=== PATIENT | female | born 1980 | race African-American/Black ===

== ENCOUNTER 2017-08-03 23:03 | Emergency (ER) | payer OTHER ==
[~2017-08-03] VITALS: Ht 170.2 cm; Wt 100.0 kg
[2017-08-03] MEDS ORDERED: QUET1TAB9 PO (23:16)
[2017-08-03] MEDS ORDERED: SERT-155 PO (23:16)
[2017-08-03] MEDS ORDERED: IBUP-1022 PO (23:16)
[2017-08-04] MEDS ORDERED: NORCO, ANEXSIA 5/325MG TABLET (HYDROcodone/ACETAMINOPHEN) PO ONE (00:30)
[2017-08-04] MEDS ORDERED: NORCOTAB PO (00:56)
[2017-08-04 01:07] VITALS: BP 136/92
--- NOTE | 2017-08-04 07:41 | REP ---
Left shoulder three views: Mineralization and joint spaces are unremarkable. There is no fracture or dislocation. No calcifications or foreign bodies. The scapula is unremarkable. Impression: Negative left shoulder Signed by Adria Kaufman MD 08/04/2017 07:33 A
== END 2017-08-04 01:10 | disposition home or self-care (01) ==
LOC: M ED 23:03
DX: S46.012A Strain of muscle(s) and tendon(s) of the rotator cuff of left shoulder, initial encounter (principal); X58.XXXA Exposure to other specified factors, initial encounter; Y92.89 Other specified places as the place of occurrence of the external cause; Y93.89 Activity, other specified; Y99.8 Other external cause status; Z79.899 Other long term (current) drug therapy

== ENCOUNTER 2017-11-13 11:59 | Emergency (ER) | payer OTHER ==
[2017-11-13] MEDS: KETOROLAC 60 MG/2 ML VIAL (J1885) IM (12:25)
== END 2017-11-13 13:10 | disposition home or self-care (01) ==
LOC: M ED 11:59
DX: S83.92XA Sprain of unspecified site of left knee, initial encounter (principal); X58.XXXA Exposure to other specified factors, initial encounter; Y92.89 Other specified places as the place of occurrence of the external cause; E66.9 Obesity, unspecified; Z79.899 Other long term (current) drug therapy; Z88.8 Allergy status to other drugs, medicaments and biological substances; Z98.890 Other specified postprocedural states; Z87.891 Personal history of nicotine dependence
CPT/HCPCS: J1885

== ENCOUNTER 2018-03-06 01:30 | Emergency (ER) | payer OTHER ==
[2018-03-06] MEDS: NORCO, ANEXSIA 5/325MG TABLET (HYDROcodone/ACETAMINOPHEN) PO (06:48)
== END 2018-03-06 10:21 | disposition home or self-care (01) ==
LOC: M ED 01:30
DX: S63.502A Unspecified sprain of left wrist, initial encounter (principal); S83.91XA Sprain of unspecified site of right knee, initial encounter; X50.9XXA Other and unspecified overexertion or strenuous movements or postures, initial encounter; Y92.018 Other place in single-family (private) house as the place of occurrence of the external cause; F41.9 Anxiety disorder, unspecified; F33.9 Major depressive disorder, recurrent, unspecified; Z88.8 Allergy status to other drugs, medicaments and biological substances
CPT/HCPCS: 73110

== ENCOUNTER → 2019-07-30 | Outpatient (CLI) | payer OTHER ==
[~2019-07-30] MED LIST: HYDR-3715 PO; IBUP-1022 PO; MULTLIQ PO; PERC5TAB12 PO; QUET200T2 PO; SERT50TA29 PO; VALI5TAB PO
--- NOTE | 2019-07-30 17:55 | REP ---
Right hand series: Four views. History: Injury. Findings: Four views right hand demonstrate overall normal mineralization. There is soft tissue swelling about the PIP joint of the long finger. No fracture or subluxation is seen however. There is a tiny accessory ossicle adjacent to the ulnar styloid. Impression: No fracture noted. Soft tissue swelling about the PIP joint of the long finger. Electronically Signed by Goyo Mccray MD 07/30/2019 05:47 P
== END ==
LOC: M LRY 17:17
PROVIDERS: ATTEND Nurse Practitioner Family
DX: S69.91XA Unspecified injury of right wrist, hand and finger(s), initial encounter (principal); W18.30XA Fall on same level, unspecified, initial encounter; Y92.009 Unspecified place in unspecified non-institutional (private) residence as the place of occurrence of the external cause
CPT/HCPCS: 73130; G0463